=== PATIENT | female | born 1995 | race Caucasian/White ===

== ENCOUNTER 2025-07-03 10:36 | Emergency (ER) | payer MEDICAID ==
[~2025-07-03] VITALS: Ht 175.3 cm; Wt 104.5 kg
[2025-07-03 10:39] VITALS: BP 141/89; PULSE 81; RESP 16; TEMP 97.1; O2SAT 99
--- NOTE | 2025-07-03 11:10 | Physician Documentation ---
History of Present Illness ~ Chief Complaint: Medical Clearance Stated Complaint: MED CLEARANCE Time Seen by MD: 10:55 HPI 30-year-old female who seeks medical clearance to participate in alcohol rehab program. Last drink was two days ago and last use benzodiazepine and day and a half ago. She is while alert and oriented. She does smoke cigarettes. She looks forward to getting on the right path. She is otherwise healthy with no past medical history or surgical history. Medication Reconciliation Allergies: Coded Allergies: No Known Allergies (Unverified , 07/03/25) Review of Systems All Other Systems at this time: Reviewed and Negative Physical Exam Vital Signs: RN Vital Signs have been reviewed: Yes, Temperature: 97.1, Source: Temporal, Heart Rate: 81, Respiratory Rate: 16, BP: 141/89, Pulse Oximetry: 99, Weight: 104.550 General Appearance: alert, WD/WN Head: no evidence of injury Face: normal Pupils/EOM/Fundus: PERRLA Respiratory: lungs clear Chest: no accessory muscle use Cardiovascular: normal peripheral pulses, regular rate, rhythm Skin: warm/dry Neurologic: oriented x4 Motor / Sensory: no motor deficit, no sensory deficit Cerebellar Function: normal Coordination / Gait: normal gait Affect: appropriate Appearance/Memory/Insight: appropriate appearance Thoughts/Hallucinations: normal thought pattern Behavior/Eye contact/Speech: cooperative Progress Results/Orders Results/Orders Vital Signs 07/03/25 10:39 Temp 97.1 Pulse 81 Resp 16 B/P (MAP) 141/89 Pulse Ox 99 Medical Decision Making Additional information obtaine: N/A Findings 22-year-old female who presents to the emergency department for medical clearance to participate in program. No obvious signs of withdrawal. Patient is safe to participate. Differential Dx:Considerations: Include: Intoxication-Alcohol, Intoxication- Other drug, Personality disorder, Substance abuse disorder, Acute delirium, Alcohol withdrawl syndrom, Medically stable Departure Disposition: 01 HOME / SELF CARE / HOMELESS Impression: Primary Impression: Medical clearance Additional Impression: Encounter for medical screening examination Condition: Stable Discharge Instructions: Medical Screening Exam Additional Instructions: I am providing you with Medical Clearance to participate in your program. Please continue with your efforts for a clean and sober lifestyle. Thank you for visiting emergency department [facility]. Referrals: NO PRIMARY CARE PROVIDER (PCP) Education Educated: Patient Educated regarding: diagnosis, treatment, prognosis, need for follow up Signature Scribe Signature: . Attestation: . NICK BABB Jul 03, 2025 11:10 JEANINE SUAREZ MD Jul 03, 2025 15:41
== END 2025-07-03 11:19 | disposition home or self-care (01) ==
LOC: ER 10:38
DX: Z00.00 Encounter for general adult medical examination without abnormal findings (principal); F17.210 Nicotine dependence, cigarettes, uncomplicated
CPT/HCPCS: 99282